=== PATIENT | female | born 1995 | race African-American/Black ===

== ENCOUNTER 2020-09-30 10:00 | Inpatient (IN) ==
[2020-09-30] MEDS ORDERED: CITRIC ACID/SODIUM CITRATE 30 ML UDCUP PO ONE (10:09)
[2020-09-30] MEDS ORDERED: FAMOTIDINE 20 MG/2 ML VIAL IV ONE (10:10)
[2020-09-30] MEDS ORDERED: ceFAZolin 3,000 MG in SYRINGE 1 EACH IV ONE (10:10)
[2020-09-30] MEDS ORDERED: LACTATED RINGERS 1,000 ML IV SCH ×3 (10:30→15:30)
[2020-09-30 10:41] LABS: Basophils # 0.1 10*3/uL (0.0-0.2); Basophils % 0.4 % (0.0-0.8); Eosinophils # 0.1 10*3/uL (0.0-0.87); Eosinophils % 0.9 % (0.00-10.9); Hematocrit 39.4 VOL% (35.7-47.0); Hemoglobin 12.8 GM/DL (12.0-16.0); Immature Granulocytes % 1.4 %; Immature Granulocytes Absolute 0.19 #; Lymphocytes # 1.6 10*3/uL (1.4-4.0); Lymphocytes % 11.4 % (21.3-54.2); Mean Corpuscular HGB Conc 32.5 GM/DL (32-36); Mean Corpuscular Volume 81.4 FL (87-102); Mean Platelet Volume 10.1 FL (9.6-12.0); Monocytes % 11.8 % (1.7-12.7); Neutrophils % 74.1 % (38.7-73.9); Platelet Count 217 T/CUMM (130-400); Red Blood Count 4.84 MC/CUMM (3.8-5.5); Red Cell Distribution Width 14.8 % (9.3-17.3); White Blood Count 13.6 T/CUMM (4-12)
[2020-09-30] MEDS ORDERED: SODIUM CHLORIDE 0.9% 100 ML IV ONE (10:41)
[2020-09-30] MEDS ORDERED: OXYTOCIN 10 UNIT/ML VIAL IM ONE (10:43)
[2020-09-30] MEDS ORDERED: OXYTOCIN/LR 30 UNIT/1,000 ML BAG IV ONE (10:43)
[2020-09-30 11:03] LABS: Alanine Aminotransferase 27 U/L (13-56); Alkaline Phosphatase 207 U/L (45-117); Aspartate Amino Transferase 34 U/L (0-37); Bilirubin,Total < 0.39 MG/DL (0.2-1.0); Blood Urea Nitrogen 13 MG/DL (7-18); Calcium 8.9 MG/DL (8.5-10.1); Estimated Glom Filtration Rate 202 ML/MIN; Glucose 90 MG/DL (74-106); Osmolality,Calculated 276.5 MOS/KG (273-304); Total Protein 7.3 G/DL (6.4-8.3)
[2020-09-30] MEDS ORDERED: MORPHINE 10 MG/10 ML VIAL ONE (13:40)
[2020-09-30] MEDS ORDERED: fentaNYL 100 MCG/2 ML VIAL ONE (13:40)
[2020-09-30] MEDS ORDERED: ONDANSETRON 4 MG/2 ML VIAL ONE (13:43)
[2020-09-30] MEDS ORDERED: BUPIVACAINE SPINAL 0.75% 2 ML AMP SPINAL ONE (13:44)
[2020-09-30] MEDS ORDERED: MIDAZOLAM 2 MG/2 ML VIAL ONE (14:42)
[2020-09-30] MEDS ORDERED: PHENYLEPHRINE 1 MG/10 ML SYRINGE IV ONE (14:51)
[2020-09-30] MEDS ORDERED: ACETAMINOPHEN 1,000 MG/100 ML VIAL IV ONE (14:52)
[2020-09-30 15:00] LABS: Cord Arterial Blood HCO3 19.2 MMOL/L
[2020-09-30 15:00] LABS: Bilirubin,Urine Negative (Negative); Blood, Urine Negative (Negative); Glucose,Urine (UA) Negative (Negative); Ketones,Urine 20 mg/dL (Negative); Mucus,Urine Occasional /LPF (Occasional); Nitrite,Urine Negative (Negative); Protein,Urine Negative; RBC,Urine <1 /HPF (0-4); Squamous Epithelial Cell,Urine Occasional /HPF (0-10); Urine Appearance CLEAR (Clear); Urine Color Yellow (Yellow); Urine Specific Gravity 1.016 (1.001-1.035); Urine Urobilinogen < 2.0 EU/DL (0.2-1.0); WBC,Urine 1 /HPF (0-6)
[2020-09-30 15:03] LABS: Cord Venous Blood HCO3 21.6 MMOL/L; Cord Venous Blood PCO2 49.1 MMHG; Cord Venous Blood PO2 28.2
[2020-09-30] MEDS ORDERED: ACETAMINOPHEN 325 MG TABLET PO PRN (15:14)
[2020-09-30] MEDS ORDERED: RHO(D) IMMUNE GLOBULIN 300 MCG SYRINGE IM ONE (15:14)
[2020-09-30] MEDS ORDERED: ONDANSETRON 4 MG/2 ML VIAL IV PRN (15:14)
[2020-09-30] MEDS ORDERED: OXYTOCIN/LR 20 UNIT/1,000 ML BAG IV ONE (15:14)
[2020-09-30] MEDS ORDERED: ceFAZolin 1,000 MG in SYRINGE 1 EACH IV SCH (18:00)
[2020-09-30] MEDS ORDERED: KETOROLAC 30 MG/1 ML VIAL IV PRN (19:14)
[2020-09-30] MEDS ORDERED: ACETAMINOPHEN INJ 1,000 MG in PREMIX 1 EACH IV ONE (19:15)
[2020-09-30] MEDS: DOCUSATE SODIUM 100 MG CAPSULE PO SCH (21:13)
[2020-09-30 23:52] LABS: Basophils % 0.3 % (0.0-0.8); Eosinophils # 0.1 10*3/uL (0.0-0.87); Eosinophils % 0.5 % (0.00-10.9); Hematocrit 36.1 VOL% (35.7-47.0); Hemoglobin 11.6 GM/DL (12.0-16.0); Immature Granulocytes % 0.9 %; Immature Granulocytes Absolute 0.14 #; Lymphocytes # 1.7 10*3/uL (1.4-4.0); Lymphocytes % 11.5 % (21.3-54.2); Mean Corpuscular HGB Conc 32.1 GM/DL (32-36); Mean Corpuscular Volume 82.2 FL (87-102); Mean Platelet Volume 10.5 FL (9.6-12.0); Monocytes % 12.7 % (1.7-12.7); Neutrophils % 74.1 % (38.7-73.9); Platelet Count 191 T/CUMM (130-400); Red Blood Count 4.39 MC/CUMM (3.8-5.5); Red Cell Distribution Width 14.7 % (9.3-17.3)
[2020-10-01 05:34] LABS: Basophils % 0.3 % (0.0-0.8); Eosinophils # 0.1 10*3/uL (0.0-0.87); Eosinophils % 0.9 % (0.00-10.9); Hematocrit 34.2 VOL% (35.7-47.0); Immature Granulocytes Absolute 0.12 #; Lymphocytes # 1.6 10*3/uL (1.4-4.0); Lymphocytes % 12.8 % (21.3-54.2); Mean Corpuscular HGB Conc 32.2 GM/DL (32-36); Mean Corpuscular Volume 82.2 FL (87-102); Mean Platelet Volume 10.6 FL (9.6-12.0); Monocytes % 13.6 % (1.7-12.7); Neutrophils % 71.4 % (38.7-73.9); Platelet Count 183 T/CUMM (130-400); Red Blood Count 4.16 MC/CUMM (3.8-5.5); Red Cell Distribution Width 14.6 % (9.3-17.3); White Blood Count 12.4 T/CUMM (4-12)
[2020-10-01] MEDS ORDERED: ceFAZolin 1,000 MG in SYRINGE 1 EACH IV ONE (07:00)
[2020-10-01] MEDS: SIMETHICONE CHEW 80 MG TABLET PO PRN ×2 (09:40→21:23)
[2020-10-01] MEDS: METOCLOPRAMIDE 10 MG TABLET PO SCH ×4 (09:40→23:59)
[2020-10-01] MEDS: MULTIVITAMIN (PRENATAL) TABLET PO SCH (09:40)
[2020-10-01] MEDS: DOCUSATE SODIUM 100 MG CAPSULE PO SCH ×2 (09:40→21:23)
[2020-10-01] MEDS: MAGNESIUM HYDROXIDE SUSP 30 ML UDCUP PO PRN ×2 (09:40→21:23)
[2020-10-01] MEDS: IBUPROFEN 800 MG TABLET PO PRN (12:40)
[2020-10-02] MEDS: IBUPROFEN 800 MG TABLET PO PRN (02:38)
[2020-10-02] MEDS: SIMETHICONE CHEW 80 MG TABLET PO PRN (03:12)
[2020-10-02] MEDS: METOCLOPRAMIDE 10 MG TABLET PO SCH (06:08)
[2020-10-02] MEDS: MULTIVITAMIN (PRENATAL) TABLET PO SCH (09:57)
[2020-10-02] MEDS: DOCUSATE SODIUM 100 MG CAPSULE PO SCH (09:57)
[2020-10-02] MEDS ORDERED: INFLUENZA VIRUS VACCINE 0.5 ML SYRINGE IM ONE (11:01)
[2020-10-02 13:30] VITALS: BP 133/78
== END 2020-10-02 16:15 | disposition home or self-care (01) | DRG 788 ==
LOC: N.LD 10:00 → N.OB 19:35
PROVIDERS: ADMIT Obstetrics & Gynecology; ATTEND Obstetrics & Gynecology
PROC: LDCSECT (ICD-10-PCS; 2020-09-30 13:30)